=== PATIENT | male | born 1955 | race Caucasian/White ===

== ENCOUNTER 2017-12-17 18:11 | Emergency (ER) | payer MEDICAID, OTHER, SELFPAY ==
[2017-12-17 18:13] VITALS: BP 126/88; PULSE 87; RESP 16; TEMP 36.9; O2SAT 97; BMI 21.9
[2017-12-17 19:36] VITALS: PULSE 94; RESP 22; O2SAT 98
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
[2017-12-17] MEDS: Diphth,Pertuss(Acell),Tet Vac 0.5 ML Vial IM (21:12)
[2017-12-17 21:21] VITALS: BP 121/72; PULSE 91; RESP 16; O2SAT 97
--- NOTE | 2017-12-17 21:23 | ED.RN ---
THIS NURSE REVIEWED D/C INSTRUCTIONS WITH PT AND BROTHER. BOTH VERBALIZED UNDERSTANDING OF INSTRUCTIONS. PT DENIES FURTHER NEEDS OR QUESTIONS AT THIS TIME. PT DENIES REDNESS OR ITCHING AT INJECTION SITE. PT AMBULATES FROM ROOM ON OWN WITHOUT ASSISTANCE FROM STAFF
== END 2017-12-17 21:24 | disposition home or self-care (01) ==
PROVIDERS: Emergency Provider Emergency Medicine
DX: S62.390A Other fracture of second metacarpal bone, right hand, initial encounter for closed fracture (principal); F10.129 Alcohol abuse with intoxication, unspecified; Y90.9 Presence of alcohol in blood, level not specified; S60.511A Abrasion of right hand, initial encounter; S01.01XA Laceration without foreign body of scalp, initial encounter; R40.2410 Glasgow coma scale score 13-15, unspecified time; W19.XXXA Unspecified fall, initial encounter; Y93.9 Activity, unspecified; Y92.9 Unspecified place or not applicable; I10 Essential (primary) hypertension; E78.00 Pure hypercholesterolemia, unspecified; J44.9 Chronic obstructive pulmonary disease, unspecified; M54.9 Dorsalgia, unspecified; G89.29 Other chronic pain; G40.909 Epilepsy, unspecified, not intractable, without status epilepticus; Z79.82 Long term (current) use of aspirin; Z79.899 Other long term (current) drug therapy; F17.200 Nicotine dependence, unspecified, uncomplicated
CPT/HCPCS: 29125; 73130; 90471; 90715; 99282

== ENCOUNTER 2019-04-12 13:38 | Emergency (ER) | payer MEDICAID, SELFPAY ==
[2019-04-12 13:40] VITALS: BP 130/75; PULSE 83; RESP 17; TEMP 36.7; O2SAT 98; BMI 21.9
[2019-04-12 14:01] VITALS: RESP 18
--- NOTE | 2019-04-12 14:08 | RAD_ITS ---
STUDY: X-RAY - RIGHT FOOT CLINICAL: Male, 63 years old. Pain, redness TECHNIQUE: 3 view(s) of the foot. COMPARISON: None. FINDINGS: Normal talus, calcaneus, and tarsal bones. Normal visualized subtalar, talonavicular, calcaneocuboid, tarsal and tarsometatarsal articulations. Normal metatarsi. Normal metatarsophalangeal joint of the great toe. Normal tibial and fibular sesamoid bones. Normal interphalangeal joint of the great toe. Normal phalanges of the great toe. Normal second through fifth metatarsophalangeal joints. Normal interphalangeal joints and phalanges of the lesser toes. Mild subcutaneous edema. RAD/Foot min 3 Views IMPRESSION: Mild subcutaneous edema of the foot. Electronically Signed: Ambrosio Brady DO at 14:51 EST Tel [phone], Service support ,
--- NOTE | 2019-04-12 15:08 | ED.DCSUM_ITS ---
- ER Visit Summary Date of Service: 04/12/19 Chief Complaint: Right foot pain History of Present Illness: The patient is a 63 M who presents with right foot pain that has been getting worse over the past few days. Patient denies any trauma or injury. Patient states pain is worse over the right midfoot. Patient states the pain is worse with prolonged standing and weightbearing. Patient denies any paresthesias or weakness. Patient denies any calf pain or swelling. Physical Examination: Vital signs are stable. Patient is afebrile. Patient is in no acute distress. Musculoskeletal exam reveals tenderness over the right midfoot. There is some mild edema. There is no ecchymosis. There is no bony crepitance or step-off. There is no deformity noted. There is also tenderness over the plantar aspect of the right foot along the plantar fascia. Capillary refill is less than 2 seconds in all digits. Sensation was intact light touch in all digits. Pedal pulses were equal bilaterally. Range of motion was slightly limited in plantar flexion and dorsiflexion of the ankle secondary to pain. There is no laxity appreciated. There is no calf tenderness. Test Results: X-rays of the right foot were obtained. There is no acute fracture. These were interpreted by the radiologist and myself. Emergency Department Course and Treatment: Patient was instructed to use ice to the area. Patient was instructed to continue his meloxicam as prescribed. Patient was instructed to follow-up with his primary care physician in 5 to 7 days. Patient understood and was agreeable with the plan. All questions were a nswered. Disposition: Discharge home Impression: Plantar fasciitis right foot This note was generated with [employer] dictation software. It may contain incorrect words, spelling, and punctuation that were not noted in review of the chart prior to signing ED Disposition - Plan for ED Patient: Disposition: Home or Assisted Living Diagnosis: Plantar fasciitis of right foot Instructions: Plantar Fasciitis Referrals: [facility],[place] [Primary Care Provider] - 5-7 Days
[2019-04-12 15:14] VITALS: PULSE 80; RESP 18
== END 2019-04-12 15:18 | disposition home or self-care (01) ==
PROVIDERS: Emergency Provider Emergency Medicine
DX: M72.2 Plantar fascial fibromatosis (principal); M54.2 Cervicalgia; I10 Essential (primary) hypertension; G40.909 Epilepsy, unspecified, not intractable, without status epilepticus; Z79.82 Long term (current) use of aspirin; Z79.899 Other long term (current) drug therapy; F17.200 Nicotine dependence, unspecified, uncomplicated
CPT/HCPCS: 73630; 99284